=== PATIENT | female | born 1960 | race Caucasian/White ===

== ENCOUNTER 2016-10-02 08:36 | Emergency (ER) | payer BC ==
[~2016-10-02] VITALS: Ht 170.2 cm; Wt 65.0 kg
[2016-10-02 08:39] VITALS: BP 150/71; TEMP 98; O2SAT 100
--- NOTE | 2016-10-02 08:56 | PD ---
HPI Chief Complaint: Injury Time Seen by Provider: 08:56 Travel History International Travel<30 days: No Contact w/Intl Traveler<30days: No Traveled to known affect area: No History of Present Illness HPI 56-year-old female presents to the emergency Department with complaint of right elbow pain after slipping on a wet floor yesterday and falling. She hit her head on the wall as she fell and denies loss of consciousness. Denies neck pain or back pain. Denies lightheadedness, dizziness, headache. Denies focal deficits or weakness. Denies nausea, vomiting. Reports hitting her right elbow and pain immediately. Woke up this morning with swelling to her right elbow and unable to straighten her arm completely, or bend her arm secondary to the pain. Denies paresthesias, loss of sensation. Pain is aggravated with palpation and movement. Took some Aleve last night with minimal relief of pain. Rest her elbow and Elmo bandage for support. Denies significant past medical history. Denies anticoagulants. Denies allergies. No other modifying factors or associated signs and symptoms. PFSH Past Medical History Medical History: Denies Significant Hx Tetanus Vaccination: < 5 Years ?: Not Past Surgical History Surgical History: No Previous Surgery Social History Alcohol Use: No Tobacco Use: Yes Allergies-Medications (Allergen,Severity, Reaction): Coded Allergies: No Known Allergies (Unverified , 10/02/16) Reported Meds & Prescriptions Reported Meds & Active Scripts Active No Active Prescriptions or Reported Medications Review of Systems Except as stated in HPI: all other systems reviewed are Neg Physical Exam Narrative GENERAL: Well-nourished, well-developed female patient, in no acute distress SKIN: Warm and dry. HEAD: Atraumatic. Normocephalic. No facial or scalp abrasions or lacerations noted. EYES: Pupils equal and round at 3 mm with brisk reaction. No scleral icterus. No injection or drainage. No raccoon eyes. ENT: Mucosa pink and moist. No erythema or exudates. No uvular edema. No uvular , palatal, or tonsillar deviation. Airway patent. Nares without nasal blood, purulent drainage or septal hematoma. No rhinorrhea. EARS: Bilateral pinnae and external canals appear within normal limits. Bilateral tympanic membranes without erythema, dullness, hemotympanum or perforation. No otorrhea. No pitts signs. NECK: Trachea midline. No lymphadenopathy. Active rotation of the neck greater than 45 left and right. No midline point tenderness on palpation of the cervical spine. No obvious deformities. CHEST: No retractions or use of accessory muscles. CARDIOVASCULAR: Regular rate and rhythm. No murmur appreciated. RESPIRATORY: No accessory muscle use. Clear to auscultation. Breath sounds equal bilaterally. GASTROINTESTINAL: Abdomen soft, non-tender, nondistended. Hepatic and splenic margins not palpable. Bowel sounds are active 4 quadrants. MUSCULOSKELETAL: Right elbow is mildly edematous, with full decreased range of motion; without erythema; with tenderness on palpation; with full perioperative manager strength ; sensory intact; 2+ radial pulse; no obvious deformity. No obvious deformities. No clubbing. No cyanosis. No edema. BACK: No Point tenderness on palpation of the lumbar or thoracic spine. No obvious deformities. Patient sitting up in bed at 90. NEUROLOGICAL: Awake and alert. Oriented 3. No obvious cranial nerve deficits. Motor grossly within normal limits. Normal speech. No ataxia. Moves all extremities. 5/5 strength to all extremities. Sensory intact. PSYCHIATRIC: Appropriate mood and affect; insight and judgment normal. Data Data Last Documented VS Vital Signs Date Time Temp Pulse Resp B/P Pulse Ox O2 Delivery O2 Flow Rate FiO2 10/02/16 08:39 98.0 69 14 150/71 100 Room Air Orders Elbow, Complete (4 Vws) (10/02/16 ) [facility] Medical Decision Making Medical Screen Exam Complete: Yes Emergency Medical Condition: Yes Medical Record Reviewed: Yes Differential Diagnosis Fracture, dislocation, contusion, sprain Narrative Course 56-year-old female with right elbow injury after a mechanical slip and fall yesterday. The patient admits to hitting their head, but denies loss of consciousness. Denies nausea, vomiting. On physical exam the patient is without raccoon eyes, pitts signs, rhinorrhea, or hemotympanum. I do not suspect open or depressed skull fracture, and the patient has no signs of basilar skull fracture. Citizen [place] CT Head Injury Rule suggests a head CT is not necessary for this patient and clears the patient for head injury without imaging. Denies neck pain. Citizen [place] C-Spine Rule suggests the C-Spine can be cleared clinically of fracture, and imaging is not required. There is no midline point tenderness on palpation of the cervical spine. The patient is able to actively rotate the neck 45 left and right. The patient is sitting up in bed at 90. The patient is ambulatory. Right elbow is edematous, with limited range of motion, and the tenderness on palpation. I offered the patient a nonnarcotic for pain and she declined at this time. Right elbow x- ray ordered. 0933: Right elbow x-ray concludes Suspected effusion. Fracture is not seen. If there is continued clinical concern for a fracture a repeat series could be performed; 2. Soft tissue swelling seen posteriorly. Elmo bandage and arm sling provided for support. Instructed patient to follow up if symptoms persist greater than 10 days. Ibuprofen prescribed for home. Patient verbalizes agreement and understanding of treatment plan and outpatient follow-up. Patient is medically cleared and stable for discharge. Discussed reasons to return to the emergency department. Instructed patient to follow up with primary care provider. Patient agrees with treatment plan. The patients vital signs are stable and the patient is stable for outpatient follow-up and treatment. Patient discharged home, stable and in no acute distress. Diagnosis Primary Impression: Fall Qualified Code: W19.XXXA - Fall, initial encounter Additional Impression: Contusion of right elbow Qualified Code: S50.01XA - Contusion of right elbow, initial encounter Referrals: Primary Care Physician Patient Instructions: Contusion in Adults (ED), Fall Prevention (ED), General Instructions Additional Instructions: Ibuprofen or Tylenol as directed and as needed for pain and inflammation Rest and immobilize the affected area Apply ice to reduce swelling to affected area Avoid elbow pressure by not leaning or placing your weight on your elbow to rise from a lying or sitting position Elmo bandage for compression and support Arm sling as needed for support Follow-up with primary care provider Follow-up with orthopedic as needed if symptoms persist greater than 10 days Return to the emergency department immediately with worsening of symptoms Med/Other Pt SpecificInfo: Prescription(s) given Scripts Ibuprofen 800 Mg Dah003 Mg PO Q6HR PRN (PAIN) #30 TAB Ref 0 Prov:Meenakshi Castro 10/02/16 Disposition: 01 DISCHARGE HOME Condition: Stable Meenakshi Castro Oct 02, 2016 08:56
--- NOTE | 2016-10-02 09:29 | RADRPT ---
EXAM DATE/TIME: 10/02/2016 09:17 [place] COMPARISON: No previous studies available for comparison. INDICATIONS: Right elbow pain, fall. MEDICAL HISTORY: None. SURGICAL HISTORY: None. ENCOUNTER: Initial ACUITY: 2 days PAIN SCORE: 8/10 LOCATION: Right lateral elbow FINDINGS: The elbow joint is normally aligned. There does appear to be an effusion. A minimal posterior fat p ad is seen. A sail sign at the anterior fat pad is seen. A fracture is not clearly identified. The re does appear to be some soft tissue swelling seen in the dorsal soft tissues posterior to the olecr anon. CONCLUSION: 1. Suspected effusion. Fracture is not seen. If there is continued clinical concern for a fracture a repeat series could be performed. 2. Soft tissue swelling seen posteriorly. Rajat Santiago MD on October 02, 2016 at 9:19 Board Certified Radiologist. This report was verified electronically.
[2016-10-02] MEDS ORDERED: IBUP800T23 PO (09:35)
== END 2016-10-02 09:43 | disposition home or self-care (01) ==
LOC: NEPB 08:36
DX: S50.01XA Contusion of right elbow, initial encounter (principal); S09.90XA Unspecified injury of head, initial encounter; W01.0XXA Fall on same level from slipping, tripping and stumbling without subsequent striking against object, initial encounter; Y93.9 Activity, unspecified; Y92.9 Unspecified place or not applicable
CPT/HCPCS: 73080; 99283